=== PATIENT | female | born 1955 | race African-American/Black ===

== ENCOUNTER 2018-09-21 02:47 | Inpatient (IN) | payer MEDICARE, MEDICAID ==
[~2018-09-21] VITALS: Ht 165.1 cm; Wt 82.6 kg
[2018-09-21] MEDS ORDERED: ONDANSETRON HCL 4MG/2ML INJ IV STA (03:27)
[2018-09-21] MEDS ORDERED: SODIUM CHLORIDE 0.9% 1,000 ML IV ONE (03:27)
[2018-09-21 03:51] LABS: BG BASE EXCESS -2.5 mmol/L (-2.0-2.0); BG CARBOXYHEMOGLOBIN 0.5 % (0.5-1.5); BG DEOXYHEMOGLOBIN 5.5 % (0.0-5.0); BG FRACTION INSPIRED OXYGEN 21; BG HCO3 ACT 21.5 mmol/L (22.0-26.0); BG METHEMOGLOBIN 0.2 % (0.0-1.5); BG OXYGEN SATURATION 94.5 % (92.0-98.5); BG OXYHEMOGLOBIN 93.8 % (94.0-97.0); BG PCO2 34.7 mmHg (35.0-45.0); BG PH 7.409 (7.350-7.450); BG SAMPLE SITE RIGHT RADIAL; BG TOTAL HEMOGLOBIN 14.2 g/dL (12.0-18.0); BG VENT MODE ROOM AIR
[2018-09-21 04:05] LABS: CHLORIDE 95 mEq/L (98-107)
[2018-09-21 04:08] LABS: BASOPHILS % 0.4 % (0.0-2.0); EOSINOPHILS % 0.6 % (0.0-5.0); HEMATOCRIT. 41.8 % (36.0-48.0); HEMOGLOBIN. 14.4 g/dL (12.0-16.0); LYMPHOCYTES % 11.1 % (20.0-50.0); MEAN CORPUSCULAR HEMOGLOBIN 27.9 pg (28.0-32.0); MEAN CORPUSCULAR VOLUME 80.7 fL (81.0-99.0); MEAN PLATELET VOLUME 8.5 fl (7.4-10.4); MONOCYTES % 10.2 % (2.0-8.0); NEUTROPHILS % 77.7 % (40.0-76.0); PLATELET 255 x1000/uL (130-400); RED BLOOD CELL COUNT 5.18 mill/uL (4.2-5.4); RED CELL DISTRIBUTION WIDTH 13.7 % (11.6-14.6)
[2018-09-21 04:12] LABS: BETA HYDROXYBUTYRATE 0.8 mMol/L (0.0-0.3)
[2018-09-21] MEDS ORDERED: TRAMADOL 50MG TABLET PO PRN (07:30)
[2018-09-21] MEDS ORDERED: GUAIFENESIN 200MG/10ML SUGAR FREE UDC PO PRN (07:30)
[2018-09-21] MEDS ORDERED: DEXTROSE 50% WATER 50ML SYRINGE IV PRN (07:30)
[2018-09-21] MEDS ORDERED: DOCUSATE SODIUM 100MG CAPSULE PO PRN (07:30)
[2018-09-21] MEDS ORDERED: NITROGLYCERIN 0.4MG TABLET SL SL PRN (07:30)
[2018-09-21] MEDS ORDERED: ONDANSETRON HCL 4MG/2ML INJ IV PRN (07:30)
[2018-09-21] MEDS ORDERED: IPRATROPIUM/ALBUTEROL 0.5-3(2.5)MG/3ML NEB INH PRN (07:30)
[2018-09-21] MEDS ORDERED: MAGNESIUM/ALUMINUM HYDROXIDE/SIMETHICONE 30ML UDC PO PRN (07:30)
[2018-09-21 08:22] LABS: VITAMIN B12 SERUM 178 pg/mL (211-911)
[2018-09-21 08:35] LABS: FOLIC ACID (FOLATE) SERUM > 20.00 ng/mL (>5.38)
[2018-09-21] MEDS: SODIUM CHLORIDE 0.9% 1,000 ML IV SCH ×2 (08:40→12:47)
[2018-09-21] MEDS: INSULIN LISPRO 100 UNITS/ML SUBCUT SCH ×3 (08:50→18:15)
[2018-09-21] MEDS: BLOOD SUGAR DIAGNOSTIC STRIP TEST SCH ×4 (09:00→20:20)
[2018-09-21] MEDS: FAMOTIDINE 20MG TABLET PO SCH ×2 (10:29→20:20)
[2018-09-21] MEDS: ENOXAPARIN 40MG/0.4ML SYR SUBCUT SCH (10:29)
[2018-09-21 10:30] VITALS: BP 140/78
[2018-09-21] MEDS: METOCLOPRAMIDE 10MG/10 ML UDC PO SCH ×3 (10:36→17:30)
[2018-09-21] MEDS: SUCRALFATE 1 G/10 ML UDC PO SCH ×4 (10:36→20:20)
[2018-09-21] MEDS: ACETAMINOPHEN 325MG TABLET PO PRN ×2 (10:41→20:43)
[2018-09-21 10:59] VITALS: BP 140/78
[2018-09-21 12:00] VITALS: BP 139/75
[2018-09-21] MEDS: CLOPIDOGREL 75MG TABLET PO SCH (12:47)
[2018-09-21] MEDS: INSULIN GLARGINE UD 100 UNITS/ML SYR SUBCUT SCH (15:38)
[2018-09-21 16:00] VITALS: BP 142/88
[2018-09-21] MEDS: CYANOCOBALAMIN 1000MCG/ML VIAL IM SCH (17:30)
[2018-09-21 17:44] LABS: CREATINE KINASE 275 IU/L (26-192)
[2018-09-21 17:45] LABS: CREATINE KINASE MB FRACTION 1.2 ng/mL (0.5-3.6)
[2018-09-21 19:53] VITALS: BP 142/74
[2018-09-21] MEDS: ATORVASTATIN CALCIUM 20MG TABLET PO SCH (20:20)
[2018-09-21] MEDS ORDERED: ZOLPIDEM TARTRATE 5MG TABLET PO PRN (21:00)
[2018-09-21 23:53] LABS: CREATINE KINASE 250 IU/L (26-192)
[2018-09-21 23:54] LABS: CREATINE KINASE MB FRACTION < 1.0 ng/mL (0.5-3.6)
[2018-09-22] VITALS (7 sets, daily range): BP systolic 123–180; BP diastolic 66–89
[2018-09-22] MEDS: INSULIN LISPRO 100 UNITS/ML SUBCUT SCH ×5 (02:17→21:13)
[2018-09-22] MEDS: METOCLOPRAMIDE 10MG/10 ML UDC PO SCH ×3 (06:07→16:56)
[2018-09-22] MEDS: SUCRALFATE 1 G/10 ML UDC PO SCH ×4 (06:07→20:51)
[2018-09-22] MEDS: BLOOD SUGAR DIAGNOSTIC STRIP TEST SCH ×4 (06:09→20:51)
[2018-09-22] MEDS ORDERED: CHOL20004 MT (09:20)
[2018-09-22] MEDS ORDERED: ASPI-986 MT (09:20)
[2018-09-22] MEDS ORDERED: ATOR-2 MT (09:20)
[2018-09-22] MEDS ORDERED: METF-815 MT (09:20)
[2018-09-22] MEDS ORDERED: CLOP75TA4 MT (09:20)
[2018-09-22] MEDS: CYANOCOBALAMIN 1000MCG/ML VIAL IM SCH (09:27)
[2018-09-22] MEDS: ENOXAPARIN 40MG/0.4ML SYR SUBCUT SCH (09:27)
[2018-09-22] MEDS: CLOPIDOGREL 75MG TABLET PO SCH (09:27)
[2018-09-22] MEDS: FAMOTIDINE 20MG TABLET PO SCH ×2 (09:27→20:51)
[2018-09-22] MEDS: SODIUM CHLORIDE 0.9% 1,000 ML IV SCH ×2 (10:02→15:28)
[2018-09-22] MEDS: INSULIN GLARGINE UD 100 UNITS/ML SYR SUBCUT SCH (11:33)
[2018-09-22] MEDS: CLONIDINE 0.1MG TABLET PO PRN (15:52)
[2018-09-22] MEDS: ATORVASTATIN CALCIUM 20MG TABLET PO SCH (20:51)
[2018-09-23] VITALS: BP 155/80
[2018-09-23 04:00] VITALS: BP 148/81
[2018-09-23] MEDS: ACETAMINOPHEN 325MG TABLET PO PRN (05:42)
[2018-09-23] MEDS: SUCRALFATE 1 G/10 ML UDC PO SCH ×4 (05:43→20:44)
[2018-09-23] MEDS: BLOOD SUGAR DIAGNOSTIC STRIP TEST SCH ×4 (05:44→21:00)
[2018-09-23] MEDS: METOCLOPRAMIDE 10MG/10 ML UDC PO SCH ×3 (05:44→17:03)
[2018-09-23] MEDS: INSULIN LISPRO 100 UNITS/ML SUBCUT SCH ×4 (06:24→21:22)
[2018-09-23 08:00] VITALS: BP 175/86
[2018-09-23] MEDS: CLOPIDOGREL 75MG TABLET PO SCH (08:56)
[2018-09-23] MEDS: CLONIDINE 0.1MG TABLET PO PRN (08:56)
[2018-09-23] MEDS: CYANOCOBALAMIN 1000MCG/ML VIAL IM SCH (08:57)
[2018-09-23] MEDS: ENOXAPARIN 40MG/0.4ML SYR SUBCUT SCH (08:57)
[2018-09-23] MEDS: FAMOTIDINE 20MG TABLET PO SCH ×2 (08:57→20:45)
[2018-09-23] MEDS: INSULIN GLARGINE UD 100 UNITS/ML SYR SUBCUT SCH (10:56)
[2018-09-23] MEDS: AMLODIPINE 10MG TABLET PO SCH (10:59)
[2018-09-23] MEDS: SODIUM CHLORIDE 0.9% 1,000 ML IV SCH (12:42)
[2018-09-23] MEDS ORDERED: IOHEXOL-350 100 ML BOTTLE ONE (14:02)
[2018-09-23 16:00] VITALS: BP 124/76
[2018-09-23 20:00] VITALS: BP 120/72
[2018-09-23] MEDS: ATORVASTATIN CALCIUM 20MG TABLET PO SCH (20:45)
[2018-09-24] VITALS: BP 118/70
[2018-09-24] MEDS: SODIUM CHLORIDE 0.9% 1,000 ML IV SCH ×3 (02:02→14:27)
[2018-09-24 04:00] VITALS: BP 109/73
[2018-09-24] MEDS: BLOOD SUGAR DIAGNOSTIC STRIP TEST SCH ×4 (06:00→20:46)
[2018-09-24] MEDS: METOCLOPRAMIDE 10MG/10 ML UDC PO SCH ×3 (06:12→17:59)
[2018-09-24] MEDS: SUCRALFATE 1 G/10 ML UDC PO SCH ×4 (06:12→21:00)
[2018-09-24] MEDS: INSULIN LISPRO 100 UNITS/ML SUBCUT SCH ×4 (06:13→21:03)
[2018-09-24 08:00] VITALS: BP 120/78
[2018-09-24] MEDS: CLOPIDOGREL 75MG TABLET PO SCH (08:58)
[2018-09-24] MEDS: CYANOCOBALAMIN 1000MCG/ML VIAL IM SCH (08:58)
[2018-09-24] MEDS: ENOXAPARIN 40MG/0.4ML SYR SUBCUT SCH (08:58)
[2018-09-24] MEDS: AMLODIPINE 10MG TABLET PO SCH (08:59)
[2018-09-24] MEDS: FAMOTIDINE 20MG TABLET PO SCH ×2 (09:00→21:01)
[2018-09-24] MEDS: INSULIN GLARGINE UD 100 UNITS/ML SYR SUBCUT SCH (09:59)
[2018-09-24] MEDS: ACETAMINOPHEN 325MG TABLET PO PRN (11:38)
[2018-09-24 16:00] VITALS: BP 107/63
[2018-09-24 20:00] VITALS: BP 138/74
[2018-09-24] MEDS: ATORVASTATIN CALCIUM 20MG TABLET PO SCH (21:01)
[2018-09-25] VITALS (7 sets, daily range): BP systolic 126–143; BP diastolic 62–77
[2018-09-25] MEDS: BLOOD SUGAR DIAGNOSTIC STRIP TEST SCH ×3 (06:10→17:49)
[2018-09-25] MEDS: SUCRALFATE 1 G/10 ML UDC PO SCH ×3 (06:17→17:56)
[2018-09-25] MEDS: METOCLOPRAMIDE 10MG/10 ML UDC PO SCH ×3 (06:17→17:51)
[2018-09-25] MEDS: INSULIN LISPRO 100 UNITS/ML SUBCUT SCH ×4 (06:19→18:00)
[2018-09-25] MEDS: CLOPIDOGREL 75MG TABLET PO SCH (10:32)
[2018-09-25] MEDS: FAMOTIDINE 20MG TABLET PO SCH (10:32)
[2018-09-25] MEDS: ENOXAPARIN 40MG/0.4ML SYR SUBCUT SCH (10:35)
[2018-09-25] MEDS: AMLODIPINE 10MG TABLET PO SCH (10:35)
[2018-09-25] MEDS: CYANOCOBALAMIN 1000MCG/ML VIAL IM SCH (10:36)
[2018-09-25] MEDS: SODIUM CHLORIDE 0.9% 1,000 ML IV SCH (10:38)
[2018-09-25] MEDS: INSULIN GLARGINE UD 100 UNITS/ML SYR SUBCUT SCH (11:11)
== END 2018-09-25 21:40 | DRG 64 ==
LOC: ER 02:47 → 8WST 05:10 → EDBEDREQTM 05:13 → EDBEDREQ 05:13 → ENRESERV 07:03 → SUPCPDRO 07:06
PROVIDERS: ADMIT Internal Medicine; ATTEND Internal Medicine
DX: I63.9 Cerebral infarction, unspecified (principal); G92 Toxic encephalopathy; E87.1 Hypo-osmolality and hyponatremia; G81.94 Hemiplegia, unspecified affecting left nondominant side; E53.8 Deficiency of other specified B group vitamins; E11.65 Type 2 diabetes mellitus with hyperglycemia; I10 Essential (primary) hypertension; I65.22 Occlusion and stenosis of left carotid artery; Z88.8 Allergy status to other drugs, medicaments and biological substances
CPT/HCPCS: 36415; 36600; 70498; 70544; 70551; 71045; 74176; 80061; 82010; 82375; 82550; 82553; 82607; 82746; 82805; 82962; 83036; 83605; 84145; 84443; 84484; 93005; 93306; 93880; 93970; 96374; 99285; J1650; J1815; J2405; J3420; J7030; J8597; Q9967

== ENCOUNTER 2022-10-30 14:39 | Emergency (ER) | payer MEDICARE, MEDICAID ==
[~2022-10-30] VITALS: Ht 167.6 cm; Wt 55.0 kg
[2022-10-30 14:52] VITALS: O2SAT 97
[2022-10-30 17:34] LABS: BASOPHILS % 0.5 % (0.0-2.0); CHLORIDE 101 mEq/L (98-107); EOSINOPHILS % 1.4 % (0.0-5.0); HEMATOCRIT. 42.3 % (36.0-48.0); INDEX HEMOLYSI 1 (1-3); INDEX ICTERIC 1 (1-4); INDEX LIPEMIC 1 (1-3); LYMPHOCYTES % 20.9 % (20.0-50.0); MEAN CORPUSCULAR HEMOGLOBIN 27.5 pg (28.0-32.0); MEAN CORPUSCULAR HGB CONC 33.2 g/dL (31.0-37.0); MEAN CORPUSCULAR VOLUME 82.9 fL (81.0-99.0); MEAN PLATELET VOLUME 8.2 fl (7.4-10.4); MONOCYTES % 6.7 % (2.0-8.0); NEUTROPHILS % 70.5 % (40.0-76.0); PLATELET 364 x1000/uL (130-400); SODIUM 135 mEq/L (136-145); WHITE BLOOD COUNT 12.2 x1000/uL (4.5-11.0)
[2022-10-30 17:38] LABS: AMMONIA < 10 uMol/L (<32)
[2022-10-30 17:40] LABS: PROTHROMBIN TIME 10.9 sec (9.6-11.0)
[2022-10-30 17:44] LABS: ALANINE AMINOTRANSFERASE 32 IU/L (13-61); ASPARTATE AMINOTRANSFERASE 23 IU/L (15-37); BILIRUBIN TOTAL 0.8 mg/dL (0.1-1.0); CALCIUM 9.8 mg/dL (8.5-10.1); CARBON DIOXIDE 27 mEq/L (21-32); CREATININE 0.7 mg/dL (0.6-1.3); ETHANOL BLOOD < 10 mg/dL (-10); GLUCOSE 88 mg/dL (70-105); NT PRO B-TYPE NATRIURETIC PEP 126 pg/mL (5-125); PROTEIN TOTAL 8.5 g/dL (6.0-8.3); TROPONIN I HIGH SENSITIVITY 42 ng/L (<54); UREA NITROGEN BLOOD 22 mg/dL (7-21)
[2022-10-30 19:39] LABS: CLARITY URINE CLEAR (CLEAR); COLOR URINE YELLOW (YELLOW); GLUCOSE URINE NEGATIVE (NEGATIVE); KETONES URINE 2+ (NEGATIVE); LEUKOCYTE ESTERASE URINE NEGATIVE (NEGATIVE); NITRITE URINE NEGATIVE (NEGATIVE); OCCULT BLOOD URINE NEGATIVE (NEGATIVE); PH URINE 5.5 (4.5-8.0); PROTEIN URINE NEGATIVE (NEGATIVE); SPECIFIC GRAVITY URINE 1.025 (1.005-1.030); UROBILINOGEN URINE 0.2 E.U./dL (0.2-1.0)
[2022-10-31 08:37] VITALS: BP 107/65; PULSE 100; RESP 14; TEMP 98.8
== END 2022-10-31 08:58 | disposition home or self-care (01) ==
LOC: ER 14:49
DX: R53.1 Weakness (principal); E11.9 Type 2 diabetes mellitus without complications; I95.9 Hypotension, unspecified; Z86.73 Personal history of transient ischemic attack (TIA), and cerebral infarction without residual deficits
CPT/HCPCS: 36415; 71045; 80053; 80320; 81003; 82140; 83605; 83880; 84484; 85025; 86850; 86900; 93005; 99285; G0480

== ENCOUNTER 2022-11-14 17:27 | Inpatient (IN) | payer MEDICARE, MEDICAID ==
[~2022-11-14] VITALS: Ht 157.5 cm; Wt 54.9 kg
[2022-11-14] MEDS ORDERED: SODIUM CHLORIDE 0.9% 1,000 ML IV ONE (17:45)
[2022-11-14 18:29] LABS: BASOPHILS % 0.3 % (0.0-2.0); EOSINOPHILS % 1.4 % (0.0-5.0); HEMATOCRIT. 42.3 % (36.0-48.0); HEMOGLOBIN. 13.7 g/dL (12.0-16.0); LYMPHOCYTES % 17.9 % (20.0-50.0); MEAN CORPUSCULAR HEMOGLOBIN 27.1 pg (28.0-32.0); MEAN CORPUSCULAR HGB CONC 32.4 g/dL (31.0-37.0); MEAN CORPUSCULAR VOLUME 83.6 fL (81.0-99.0); MEAN PLATELET VOLUME 7.9 fl (7.4-10.4); MONOCYTES % 7.5 % (2.0-8.0); NEUTROPHILS % 72.9 % (40.0-76.0); PLATELET 382 x1000/uL (130-400); RED BLOOD CELL COUNT 5.06 mill/uL (4.2-5.4); WHITE BLOOD COUNT 16.1 x1000/uL (4.5-11.0)
[2022-11-14 18:39] LABS: CHLORIDE 101 mEq/L (98-107); INDEX HEMOLYSI 1 (1-3); INDEX ICTERIC 1 (1-4); INDEX LIPEMIC 1 (1-3); POTASSIUM 4.7 mEq/L (3.5-5.1); SODIUM 132 mEq/L (136-145)
[2022-11-14 18:45] LABS: ALANINE AMINOTRANSFERASE 32 IU/L (13-61); ASPARTATE AMINOTRANSFERASE 28 IU/L (15-37); BILIRUBIN TOTAL 0.6 mg/dL (0.1-1.0); CALCIUM 9.5 mg/dL (8.5-10.1); CARBON DIOXIDE 26 mEq/L (21-32); CREATININE 1.6 mg/dL (0.6-1.3); GLUCOSE 89 mg/dL (70-105); PROTEIN TOTAL 8.5 g/dL (6.0-8.3); UREA NITROGEN BLOOD 53 mg/dL (7-21)
[2022-11-14 19:00] LABS: LACTIC ACID 2.6 mmol/L (0.4-2.0)
[2022-11-14] MEDS ORDERED: ACETAMINOPHEN 325MG TABLET PO PRN (21:45)
[2022-11-14] MEDS ORDERED: CLONIDINE 0.1MG TABLET PO PRN (21:45)
[2022-11-14] MEDS ORDERED: GUAIFENESIN 200MG/10ML SUGAR FREE UDC PO PRN (21:45)
[2022-11-14] MEDS ORDERED: MAGNESIUM/ALUMINUM HYDROXIDE/SIMETHICONE 30ML UDC PO PRN (21:45)
[2022-11-14] MEDS ORDERED: DEXTROSE 50% WATER 50ML SYRINGE IV PRN (21:45)
[2022-11-14] MEDS ORDERED: NITROGLYCERIN 0.4MG TABLET SL SL PRN (21:45)
[2022-11-14] MEDS ORDERED: ONDANSETRON HCL 4MG/2ML INJ IV PRN (21:45)
[2022-11-14] MEDS ORDERED: DOCUSATE SODIUM 100MG CAPSULE PO PRN (21:45)
[2022-11-14] MEDS ORDERED: IPRATROPIUM/ALBUTEROL 0.5-3(2.5)MG/3ML NEB HHN PRN (21:45)
[2022-11-14] MEDS ORDERED: PIPERACILLIN/TAZ 3.375G PREMIX 50 ML IV NR (22:45)
[2022-11-14 22:56] LABS: CLARITY URINE CLEAR (CLEAR); COLOR URINE YELLOW (YELLOW); GLUCOSE URINE NEGATIVE (NEGATIVE); KETONES URINE NEGATIVE (NEGATIVE); LEUKOCYTE ESTERASE URINE TRACE (NEGATIVE); NITRITE URINE NEGATIVE (NEGATIVE); OCCULT BLOOD URINE NEGATIVE (NEGATIVE); PROTEIN URINE NEGATIVE (NEGATIVE); UROBILINOGEN URINE 0.2 E.U./dL (0.2-1.0)
[2022-11-14 22:59] LABS: SQUAMOUS EPITHELIAL CELL URINE 1+ /lpf (RARE/1+)
[2022-11-14 23:15] LABS: BACTERIA URINE 1+; RBC URINE 0-2 /hpf (0-2); YEAST URINE 1+
[2022-11-14] MEDS ORDERED: VANCOMYCIN 1G PREMIX 200 ML IV NR (23:30)
[2022-11-14] MEDS: SODIUM CHLORIDE 0.9% 1,000 ML IV SCH (23:46)
[2022-11-15 02:37] VITALS: BP 130/77; PULSE 108; RESP 20; TEMP 97.9
[2022-11-15 04:42] VITALS: BP 130/77; PULSE 108; RESP 20; TEMP 97.9
[2022-11-15] MEDS ORDERED: PIPERACILLIN/TAZOBACTAM 3.375 G in DEXTROSE 5% WATER 50 ML IV SCH (06:00)
[2022-11-15] MEDS: INSULIN LISPRO 100 UNITS/ML SUBCUT SCH ×4 (07:28→21:00)
[2022-11-15] MEDS: BLOOD SUGAR DIAGNOSTIC STRIP TEST SCH ×4 (07:28→21:00)
[2022-11-15] MEDS: PANTOPRAZOLE 40MG DR TABLET PO SCH (07:29)
[2022-11-15 08:00] VITALS: BP 133/79; PULSE 98; RESP 18; TEMP 95.7
[2022-11-15 08:12] LABS: BASOPHILS % 0.5 % (0.0-2.0); EOSINOPHILS % 1.1 % (0.0-5.0); HEMOGLOBIN. 12.7 g/dL (12.0-16.0); LYMPHOCYTES % 14.5 % (20.0-50.0); MEAN CORPUSCULAR HEMOGLOBIN 27.6 pg (28.0-32.0); MEAN CORPUSCULAR HGB CONC 33.5 g/dL (31.0-37.0); MEAN CORPUSCULAR VOLUME 82.3 fL (81.0-99.0); MEAN PLATELET VOLUME 8.5 fl (7.4-10.4); MONOCYTES % 6.6 % (2.0-8.0); NEUTROPHILS % 77.3 % (40.0-76.0); PLATELET 349 x1000/uL (130-400); RED BLOOD CELL COUNT 4.62 mill/uL (4.2-5.4); RED CELL DISTRIBUTION WIDTH 13.8 % (11.6-14.6); WHITE BLOOD COUNT 16.1 x1000/uL (4.5-11.0)
[2022-11-15 08:35] LABS: CHLORIDE 105 mEq/L (98-107); INDEX HEMOLYSI 1 (1-3); INDEX ICTERIC 1 (1-4); INDEX LIPEMIC 1 (1-3); POTASSIUM 4.8 mEq/L (3.5-5.1); SODIUM 137 mEq/L (136-145)
[2022-11-15 08:57] LABS: ALANINE AMINOTRANSFERASE 26 IU/L (13-61); ALBUMIN 3.6 g/dL (3.4-5.0); ASPARTATE AMINOTRANSFERASE 28 IU/L (15-37); BILIRUBIN TOTAL 0.8 mg/dL (0.1-1.0); CALCIUM 9.3 mg/dL (8.5-10.1); CARBON DIOXIDE 25 mEq/L (21-32); CREATININE 1.2 mg/dL (0.6-1.3); GLUCOSE 86 mg/dL (70-105); PROTEIN TOTAL 7.5 g/dL (6.0-8.3); T4 FREE 1.51 ng/dL (0.76-1.46); THYROID STIMULATING HORMONE 0.98 uIU/mL (0.36-3.74); UREA NITROGEN BLOOD 43 mg/dL (7-21)
[2022-11-15] MEDS: BENAZEPRIL 10MG TABLET PO SCH (11:25)
[2022-11-15] MEDS: ASPIRIN 81MG EC TABLET PO SCH (11:25)
[2022-11-15] MEDS: CLOPIDOGREL 75MG TABLET PO SCH (11:26)
[2022-11-15] MEDS: AMLODIPINE 10MG TABLET PO SCH (11:28)
[2022-11-15] MEDS: ENOXAPARIN 30MG/0.3ML SYR SUBCUT SCH (11:30)
[2022-11-15 12:00] VITALS: BP 132/77; PULSE 84; RESP 18; TEMP 97.7
[2022-11-15] MEDS: PIPERACILLIN/TAZOBACTAM 3.375 G in DEXTROSE 5% WATER 50 ML IV SCH ×2 (15:00→15:52)
[2022-11-15 16:00] VITALS: BP 122/70; PULSE 72; RESP 18; TEMP 96.6
[2022-11-15 18:18] LABS: AMMONIA 23 uMol/L (<32)
[2022-11-15 18:44] LABS: VITAMIN B12 SERUM 798 pg/mL (211-911)
[2022-11-15 18:53] LABS: LACTIC ACID 2.4 mmol/L (0.4-2.0)
[2022-11-15 20:00] VITALS: BP 107/63; PULSE 84; RESP 23; TEMP 97.9
[2022-11-15] MEDS ORDERED: VANCOMYCIN 750MG PREMIX 150 ML IV SCH (23:30)
[2022-11-16] VITALS: BP 106/81; PULSE 112; RESP 17; TEMP 97.9
[2022-11-16] MEDS: ATORVASTATIN CALCIUM 40MG TABLET PO SCH ×2 (00:45→21:53)
[2022-11-16] MEDS: SODIUM CHLORIDE 0.9% 1,000 ML IV SCH ×2 (02:20→21:55)
[2022-11-16 04:00] VITALS: BP 128/61; PULSE 113; RESP 18; TEMP 97.9
[2022-11-16 07:11] LABS: BASOPHILS % 0.3 % (0.0-2.0); EOSINOPHILS % 1.2 % (0.0-5.0); HEMATOCRIT. 38.7 % (36.0-48.0); HEMOGLOBIN. 12.9 g/dL (12.0-16.0); LYMPHOCYTES % 17.7 % (20.0-50.0); MEAN CORPUSCULAR HEMOGLOBIN 27.2 pg (28.0-32.0); MEAN CORPUSCULAR HGB CONC 33.4 g/dL (31.0-37.0); MEAN CORPUSCULAR VOLUME 81.4 fL (81.0-99.0); MEAN PLATELET VOLUME 8.4 fl (7.4-10.4); MONOCYTES % 7.7 % (2.0-8.0); NEUTROPHILS % 73.1 % (40.0-76.0); PLATELET 348 x1000/uL (130-400); RED BLOOD CELL COUNT 4.75 mill/uL (4.2-5.4); RED CELL DISTRIBUTION WIDTH 13.8 % (11.6-14.6); WHITE BLOOD COUNT 13.6 x1000/uL (4.5-11.0)
[2022-11-16] MEDS: INSULIN LISPRO 100 UNITS/ML SUBCUT SCH ×3 (07:31→21:00)
[2022-11-16] MEDS: BLOOD SUGAR DIAGNOSTIC STRIP TEST SCH ×3 (07:31→21:53)
[2022-11-16] MEDS: PIPERACILLIN/TAZOBACTAM 3.375 G in DEXTROSE 5% WATER 50 ML IV SCH ×2 (07:31→22:17)
[2022-11-16] MEDS: PANTOPRAZOLE 40MG DR TABLET PO SCH (07:31)
[2022-11-16 08:00] VITALS: BP 106/63; PULSE 117; RESP 20; TEMP 97.4
[2022-11-16 08:05] LABS: CHLORIDE 104 mEq/L (98-107); INDEX HEMOLYSI 1 (1-3); INDEX ICTERIC 1 (1-4); INDEX LIPEMIC 1 (1-3); POTASSIUM 4.2 mEq/L (3.5-5.1); SODIUM 137 mEq/L (136-145)
[2022-11-16 08:11] LABS: CALCIUM 9.4 mg/dL (8.5-10.1); CARBON DIOXIDE 24 mEq/L (21-32); GLUCOSE 90 mg/dL (70-105); PHOSPHORUS 2.4 mg/dL (2.5-4.9); UREA NITROGEN BLOOD 25 mg/dL (7-21)
[2022-11-16] MEDS ORDERED: MAGNESIUM 2 G PREMIX 50 ML IV SCH (10:00)
[2022-11-16 12:00] VITALS: BP 115/81; PULSE 120; RESP 21; TEMP 97.9
[2022-11-16] MEDS: CLOPIDOGREL 75MG TABLET PO SCH (12:24)
[2022-11-16] MEDS: BENAZEPRIL 10MG TABLET PO SCH (12:24)
[2022-11-16] MEDS: ASPIRIN 81MG EC TABLET PO SCH (12:24)
[2022-11-16] MEDS: AMLODIPINE 10MG TABLET PO SCH (12:25)
[2022-11-16] MEDS: ENOXAPARIN 30MG/0.3ML SYR SUBCUT SCH (12:31)
[2022-11-16 16:00] VITALS: BP 94/66; PULSE 126; RESP 20; TEMP 98.4
[2022-11-16] MEDS: POTASSIUM-SODIUM PHOSPHATE POWDER PACKET PO SCH (16:06)
[2022-11-16 20:00] VITALS: BP 119/71; PULSE 116; RESP 20; TEMP 96.8
[2022-11-17] VITALS: BP 110/65; PULSE 111; RESP 20; TEMP 97.5
[2022-11-17] MEDS: SODIUM CHLORIDE 0.9% 1,000 ML IV SCH (03:41)
[2022-11-17 04:00] VITALS: BP 90/55; PULSE 70; RESP 20; TEMP 97.8
[2022-11-17] MEDS: PIPERACILLIN/TAZOBACTAM 3.375 G in DEXTROSE 5% WATER 50 ML IV SCH ×3 (05:07→14:21)
[2022-11-17] MEDS: BLOOD SUGAR DIAGNOSTIC STRIP TEST SCH ×3 (06:49→16:38)
[2022-11-17 07:42] LABS: BASOPHILS % 0.5 % (0.0-2.0); EOSINOPHILS % 1.3 % (0.0-5.0); HEMATOCRIT. 34.8 % (36.0-48.0); HEMOGLOBIN. 11.9 g/dL (12.0-16.0); LYMPHOCYTES % 16.4 % (20.0-50.0); MEAN CORPUSCULAR HEMOGLOBIN 27.8 pg (28.0-32.0); MEAN CORPUSCULAR HGB CONC 34.2 g/dL (31.0-37.0); MEAN CORPUSCULAR VOLUME 81.4 fL (81.0-99.0); MEAN PLATELET VOLUME 8.2 fl (7.4-10.4); MONOCYTES % 7.5 % (2.0-8.0); NEUTROPHILS % 74.3 % (40.0-76.0); PLATELET 319 x1000/uL (130-400); RED BLOOD CELL COUNT 4.28 mill/uL (4.2-5.4); WHITE BLOOD COUNT 12.6 x1000/uL (4.5-11.0)
[2022-11-17] MEDS: INSULIN LISPRO 100 UNITS/ML SUBCUT SCH ×3 (07:50→16:38)
[2022-11-17 08:00] VITALS: BP 116/59; PULSE 85; RESP 18; TEMP 97
[2022-11-17] MEDS: POTASSIUM-SODIUM PHOSPHATE POWDER PACKET PO SCH ×2 (09:00→16:40)
[2022-11-17] MEDS ORDERED: FAMOTIDINE 20MG TABLET PO SCH (09:00)
[2022-11-17] MEDS: ASPIRIN 81MG EC TABLET PO SCH (09:30)
[2022-11-17] MEDS: CLOPIDOGREL 75MG TABLET PO SCH (09:30)
[2022-11-17] MEDS: ENOXAPARIN 30MG/0.3ML SYR SUBCUT SCH (09:30)
[2022-11-17] MEDS: BENAZEPRIL 10MG TABLET PO SCH (09:30)
[2022-11-17] MEDS: AMLODIPINE 10MG TABLET PO SCH ×2 (09:30→09:31)
[2022-11-17] MEDS ORDERED: LEVO750T68 MT ×2 (11:11→11:17)
[2022-11-17 11:41] VITALS: BP 116/59; PULSE 85; TEMP 97; O2SAT 99
[2022-11-17 12:00] VITALS: BP 95/62; PULSE 106; RESP 18; TEMP 98.1
[2022-11-17 12:17] LABS: CHLORIDE 105 mEq/L (98-107); INDEX HEMOLYSI 1 (1-3); INDEX ICTERIC 1 (1-4); INDEX LIPEMIC 1 (1-3); POTASSIUM 3.6 mEq/L (3.5-5.1); SODIUM 134 mEq/L (136-145)
[2022-11-17 12:29] LABS: ALANINE AMINOTRANSFERASE 27 IU/L (13-61); ALBUMIN 3.3 g/dL (3.4-5.0); ASPARTATE AMINOTRANSFERASE 27 IU/L (15-37); BILIRUBIN TOTAL 0.7 mg/dL (0.1-1.0); CALCIUM 8.4 mg/dL (8.5-10.1); CARBON DIOXIDE 26 mEq/L (21-32); CREATININE 1.1 mg/dL (0.6-1.3); GLUCOSE 146 mg/dL (70-105); PHOSPHORUS 2.3 mg/dL (2.5-4.9); PROTEIN TOTAL 6.8 g/dL (6.0-8.3); UREA NITROGEN BLOOD 21 mg/dL (7-21)
[2022-11-17 16:00] VITALS: BP 97/71; PULSE 89; RESP 18; TEMP 97.9
== END 2022-11-17 20:20 | DRG 871 ==
LOC: ER 17:27 → MICUSO 20:48 → 6EST 11-15 03:40
PROVIDERS: ADMIT Hospitalist; ATTEND Hospitalist
DX: A41.9 Sepsis, unspecified organism (principal); G92.8 Other toxic encephalopathy; N17.9 Acute kidney failure, unspecified; G82.20 Paraplegia, unspecified; N39.0 Urinary tract infection, site not specified; E11.9 Type 2 diabetes mellitus without complications; Z20.822 Contact with and (suspected) exposure to COVID-19; E86.0 Dehydration; E53.8 Deficiency of other specified B group vitamins; Z86.73 Personal history of transient ischemic attack (TIA), and cerebral infarction without residual deficits; Z87.440 Personal history of urinary (tract) infections; Z88.8 Allergy status to other drugs, medicaments and biological substances
CPT/HCPCS: 36415; 71045; 76770; 80048; 80053; 81003; 82140; 82553; 82570; 82607; 82962; 83036; 83605; 83735; 84100; 84145; 84300; 84439; 84443; 85025; 87077; 87186; 87426; 93005; 99285; C9803; J1650; J1815; J2543; J3370; J3475; J7030; J7060

== ENCOUNTER 2022-12-04 12:44 | Inpatient (IN) | payer MEDICARE, MEDICAID ==
[~2022-12-04] VITALS: Ht 152.4 cm; Wt 57.6 kg
[~2022-12-04 12:44] MED LIST: AMLO10TA80 PO; ATOR40TA70 PO; BENA10TA74 PO; CLOP75TA33 PO; LANC-502 SQ; METF-415 PO; PANT20TA17 PO; PHOS250T5 PO; [UNRECOGNIZED DRUG - CODE] SQ
[2022-12-04 14:41] LABS: BASOPHILS % 0.4 % (0.0-2.0); EOSINOPHILS % 1.8 % (0.0-5.0); HEMATOCRIT. 36.4 % (36.0-48.0); HEMOGLOBIN. 11.8 g/dL (12.0-16.0); LYMPHOCYTES % 21.6 % (20.0-50.0); MEAN CORPUSCULAR HEMOGLOBIN 27.5 pg (28.0-32.0); MEAN CORPUSCULAR HGB CONC 32.4 g/dL (31.0-37.0); MEAN CORPUSCULAR VOLUME 84.9 fL (81.0-99.0); MONOCYTES % 8.7 % (2.0-8.0); NEUTROPHILS % 67.5 % (40.0-76.0); PLATELET 342 x1000/uL (130-400); RED BLOOD CELL COUNT 4.28 mill/uL (4.2-5.4); RED CELL DISTRIBUTION WIDTH 14.6 % (11.6-14.6); WHITE BLOOD COUNT 12.7 x1000/uL (4.5-11.0)
[2022-12-04 14:52] LABS: CHLORIDE 104 mEq/L (98-107); INDEX HEMOLYSI 4 (1-3); INDEX ICTERIC 1 (1-4); INDEX LIPEMIC 1 (1-3); SODIUM 134 mEq/L (136-145)
[2022-12-04 15:02] LABS: ALANINE AMINOTRANSFERASE 26 IU/L (13-61); ALBUMIN 3.6 g/dL (3.4-5.0); ASPARTATE AMINOTRANSFERASE 25 IU/L (15-37); BILIRUBIN TOTAL 0.9 mg/dL (0.1-1.0); CALCIUM 9.9 mg/dL (8.5-10.1); CARBON DIOXIDE 21 mEq/L (21-32); CREATININE 0.6 mg/dL (0.6-1.3); GLUCOSE 96 mg/dL (70-105); PROTEIN TOTAL 7.9 g/dL (6.0-8.3); UREA NITROGEN BLOOD 15 mg/dL (7-21)
[2022-12-04 15:25] LABS: TROPONIN I HIGH SENSITIVITY 58 ng/L (<54)
[2022-12-04 15:26] LABS: POTASSIUM 4.9 mEq/L (3.5-5.1)
[2022-12-04 16:34] LABS: LACTIC ACID 2.6 mmol/L (0.4-2.0)
[2022-12-04] MEDS ORDERED: VANCOMYCIN 1G PREMIX 200 ML IV ONE (17:00)
[2022-12-04] MEDS ORDERED: PIPERACILLIN/TAZ 3.375G PREMIX 50 ML IV ONE (17:00)
[2022-12-04] MEDS ORDERED: SODIUM CHLORIDE 0.9% 1000ML BAG (SEPSIS BOLUS) IV ONE (17:00)
[2022-12-04] MEDS ORDERED: HALOPERIDOL LACTATE 5MG/ML VIAL IM ONE ×2 (18:45→19:15)
[2022-12-04 19:50] LABS: PROTHROMBIN TIME 10.9 sec (9.6-11.0)
[2022-12-04] MEDS ORDERED: LORAZEPAM 2MG/ML CPJ IV ONE (20:15)
[2022-12-04] MEDS ORDERED: ACETAMINOPHEN 325MG TABLET PO PRN ×2 (22:00)
[2022-12-04] MEDS ORDERED: ONDANSETRON HCL 4MG/2ML INJ IV PRN (22:00)
[2022-12-04] MEDS ORDERED: LORAZEPAM 0.5MG TABLET PO PRN (22:00)
[2022-12-04] MEDS ORDERED: CLONIDINE 0.1MG TABLET PO PRN (22:00)
[2022-12-04] MEDS ORDERED: GUAIFENESIN 200MG/10ML SUGAR FREE UDC PO PRN (22:00)
[2022-12-04] MEDS ORDERED: IPRATROPIUM/ALBUTEROL 0.5-3(2.5)MG/3ML NEB HHN PRN (22:00)
[2022-12-04] MEDS ORDERED: DOCUSATE SODIUM 100MG CAPSULE PO PRN (22:00)
[2022-12-05] MEDS ORDERED: DEXTROSE 50% WATER 50ML SYRINGE IV PRN
[2022-12-05 04:00] VITALS: BP 143/82; PULSE 98; RESP 18; TEMP 98.2
[2022-12-05 04:30] VITALS: BP 130/70; PULSE 119; RESP 18; TEMP 100.8
[2022-12-05] MEDS ORDERED: VANCOMYCIN 750MG PREMIX 150 ML IV SCH ×2 (06:00→20:00)
[2022-12-05 06:08] LABS: CHLORIDE 104 mEq/L (98-107); INDEX HEMOLYSI 1 (1-3); INDEX ICTERIC 1 (1-4); INDEX LIPEMIC 1 (1-3); SODIUM 136 mEq/L (136-145)
[2022-12-05 06:27] LABS: ALANINE AMINOTRANSFERASE 28 IU/L (13-61); ALBUMIN 3.3 g/dL (3.4-5.0); ASPARTATE AMINOTRANSFERASE 27 IU/L (15-37); BILIRUBIN TOTAL 0.8 mg/dL (0.1-1.0); CALCIUM 9.5 mg/dL (8.5-10.1); CARBON DIOXIDE 24 mEq/L (21-32); CREATINE KINASE 486 IU/L (26-192); CREATINE KINASE MB FRACTION 3.2 ng/mL (0.5-3.6); CREATININE 0.6 mg/dL (0.6-1.3); GLUCOSE 137 mg/dL (70-105); PHOSPHORUS 4.1 mg/dL (2.5-4.9); PROTEIN TOTAL 7.1 g/dL (6.0-8.3); UREA NITROGEN BLOOD 14 mg/dL (7-21)
[2022-12-05 06:36] LABS: HEMATOCRIT 33.5 % (36.0-48.0); HEMOGLOBIN 11.3 g/dL (12.0-16.0); MEAN CORPUSCULAR HEMOGLOBIN 27.8 pg (28.0-32.0); MEAN CORPUSCULAR HGB CONC 33.8 g/dL (31.0-37.0); MEAN CORPUSCULAR VOLUME 82.2 fL (81.0-99.0); PLATELET 351 x1000/uL (130-400); RED BLOOD CELL COUNT 4.08 mill/uL (4.2-5.4); RED CELL DISTRIBUTION WIDTH 14.7 % (11.6-14.6)
[2022-12-05] MEDS: PIPERACILLIN/TAZ 3.375G PREMIX 50 ML IV SCH ×2 (07:00→07:12)
[2022-12-05] MEDS: DEXT 5%/0.45% NACL 1000ML 1,000 ML IV SCH ×2 (07:12→20:22)
[2022-12-05] MEDS: INSULIN LISPRO 100 UNITS/ML SUBCUT SCH ×4 (07:12→21:15)
[2022-12-05] MEDS: BLOOD SUGAR DIAGNOSTIC STRIP TEST SCH ×4 (07:12→20:21)
[2022-12-05 08:00] VITALS: BP 102/56; PULSE 73; RESP 14; TEMP 96.9
[2022-12-05 08:50] LABS: TROPONIN I HIGH SENSITIVITY 57 ng/L (<54)
[2022-12-05] MEDS ORDERED: MAGNESIUM 1 G PREMIX 100 ML IV NR (09:00)
[2022-12-05] MEDS: AMLODIPINE 10MG TABLET PO SCH (09:00)
[2022-12-05 12:00] VITALS: BP 122/84; PULSE 117; RESP 14; TEMP 97.6
[2022-12-05 13:13] LABS: CLARITY URINE CLOUDY (CLEAR); COLOR URINE YELLOW (YELLOW); GLUCOSE URINE NEGATIVE (NEGATIVE); KETONES URINE NEGATIVE (NEGATIVE); LEUKOCYTE ESTERASE URINE TRACE (NEGATIVE); NITRITE URINE NEGATIVE (NEGATIVE); OCCULT BLOOD URINE NEGATIVE (NEGATIVE); PH URINE 5.5 (4.5-8.0); PROTEIN URINE NEGATIVE (NEGATIVE); SPECIFIC GRAVITY URINE 1.011 (1.005-1.030); UROBILINOGEN URINE 0.2 E.U./dL (0.2-1.0)
[2022-12-05 13:34] LABS: SQUAMOUS EPITHELIAL CELL URINE 1+ /lpf (RARE/1+); YEAST URINE 2+
[2022-12-05 13:37] LABS: BACTERIA URINE RARE; RBC URINE NONE SEEN /hpf (0-2)
[2022-12-05] MEDS: PIPERACILLIN/TAZOBACTAM 3.375G in DEXT 5% WATER 50ML IV SCH ×2 (14:05→21:42)
[2022-12-05 16:00] VITALS: BP 146/87; PULSE 129; RESP 16; TEMP 97.6
[2022-12-05 20:00] VITALS: BP 142/85; PULSE 133; RESP 18; TEMP 97.9
[2022-12-05] MEDS: FAMOTIDINE 20MG TABLET PO SCH (20:31)
[2022-12-05] MEDS: ATORVASTATIN CALCIUM 40MG TABLET PO SCH (20:31)
[2022-12-05] MEDS: LEVETIRACETAM 500MG TABLET PO SCH (20:31)
[2022-12-06] VITALS: BP 101/65; PULSE 105; RESP 18; TEMP 97.9
[2022-12-06 04:00] VITALS: BP 102/58; PULSE 119; RESP 21; TEMP 98.1
[2022-12-06] MEDS: PIPERACILLIN/TAZOBACTAM 3.375G in DEXT 5% WATER 50ML IV SCH (05:08)
[2022-12-06 07:00] LABS: HEMOGLOBIN 11.3 g/dL (12.0-16.0); MEAN CORPUSCULAR HEMOGLOBIN 28.4 pg (28.0-32.0); MEAN CORPUSCULAR HGB CONC 34.3 g/dL (31.0-37.0); MEAN CORPUSCULAR VOLUME 82.9 fL (81.0-99.0); PLATELET 359 x1000/uL (130-400); RED BLOOD CELL COUNT 3.99 mill/uL (4.2-5.4); RED CELL DISTRIBUTION WIDTH 14.5 % (11.6-14.6); WHITE BLOOD COUNT 9.4 x1000/uL (4.5-11.0)
[2022-12-06 07:38] LABS: SODIUM 135 mEq/L (136-145)
[2022-12-06 07:39] LABS: CHLORIDE 105 mEq/L (98-107); INDEX HEMOLYSI 1 (1-3); INDEX ICTERIC 1 (1-4); INDEX LIPEMIC 1 (1-3); POTASSIUM 3.5 mEq/L (3.5-5.1)
[2022-12-06 07:41] LABS: CALCIUM 9.4 mg/dL (8.5-10.1)
[2022-12-06 07:49] LABS: CARBON DIOXIDE 25 mEq/L (21-32); CREATINE KINASE 658 IU/L (26-192); CREATININE 0.6 mg/dL (0.6-1.3); PHOSPHORUS 3.7 mg/dL (2.5-4.9); UREA NITROGEN BLOOD 9 mg/dL (7-21)
[2022-12-06 08:00] VITALS: BP 105/71; PULSE 106; RESP 17; TEMP 98.1
[2022-12-06 08:04] LABS: TROPONIN I HIGH SENSITIVITY 70 ng/L (<54)
[2022-12-06] MEDS: INSULIN LISPRO 100 UNITS/ML SUBCUT SCH ×4 (08:10→21:00)
[2022-12-06] MEDS: BLOOD SUGAR DIAGNOSTIC STRIP TEST SCH ×4 (08:36→21:00)
[2022-12-06] MEDS: AMLODIPINE 10MG TABLET PO SCH (09:00)
[2022-12-06] MEDS: LEVETIRACETAM 500MG TABLET PO SCH ×2 (09:01→21:00)
[2022-12-06 09:13] LABS: GLUCOSE 111 mg/dL (70-105)
[2022-12-06] MEDS ORDERED: VANCOMYCIN 500MG PREMIX 100 ML IV SCH (11:00)
[2022-12-06 12:00] VITALS: BP 120/79; PULSE 97; RESP 17; TEMP 97.6
[2022-12-06] MEDS: ASPIRIN 81MG TABLET PO SCH (13:16)
[2022-12-06] MEDS: DEXT 5%/0.45% NACL 1000ML 1,000 ML IV SCH ×2 (13:17→22:45)
[2022-12-06 16:00] VITALS: BP 126/79; PULSE 109; RESP 17; TEMP 97.4
[2022-12-06 20:00] VITALS: BP 124/76; PULSE 102; RESP 20; TEMP 97.5
[2022-12-06] MEDS: ATORVASTATIN CALCIUM 40MG TABLET PO SCH (21:00)
[2022-12-06] MEDS: FAMOTIDINE 20MG TABLET PO SCH (21:00)
[2022-12-07] VITALS: BP 137/78; PULSE 116; RESP 20; TEMP 97.7
[2022-12-07 04:00] VITALS: BP 137/80; PULSE 105; RESP 20; TEMP 99.7
[2022-12-07] MEDS: BLOOD SUGAR DIAGNOSTIC STRIP TEST SCH ×4 (06:33→21:52)
[2022-12-07 08:00] VITALS: BP 143/82; PULSE 108; RESP 17; TEMP 96.8
[2022-12-07] MEDS: INSULIN LISPRO 100 UNITS/ML SUBCUT SCH ×4 (08:10→21:00)
[2022-12-07] MEDS: AMLODIPINE 10MG TABLET PO SCH (09:00)
[2022-12-07] MEDS: ASPIRIN 81MG TABLET PO SCH (09:00)
[2022-12-07] MEDS: LEVETIRACETAM 500MG TABLET PO SCH ×2 (09:00→21:00)
[2022-12-07] MEDS: CLOPIDOGREL 75MG TABLET PO SCH (09:00)
[2022-12-07 09:58] LABS: HEMATOCRIT 32.8 % (36.0-48.0); HEMOGLOBIN 11.3 g/dL (12.0-16.0); MEAN CORPUSCULAR HEMOGLOBIN 28.2 pg (28.0-32.0); MEAN CORPUSCULAR HGB CONC 34.4 g/dL (31.0-37.0); MEAN CORPUSCULAR VOLUME 82.1 fL (81.0-99.0); PLATELET 375 x1000/uL (130-400); RED CELL DISTRIBUTION WIDTH 14.6 % (11.6-14.6); WHITE BLOOD COUNT 7.9 x1000/uL (4.5-11.0)
[2022-12-07 10:03] LABS: CALCIUM 9.2 mg/dL (8.5-10.1); CHLORIDE 104 mEq/L (98-107); INDEX HEMOLYSI 1 (1-3); INDEX ICTERIC 1 (1-4); INDEX LIPEMIC 1 (1-3); POTASSIUM 3.1 mEq/L (3.5-5.1); SODIUM 137 mEq/L (136-145)
[2022-12-07 10:07] LABS: CARBON DIOXIDE 26 mEq/L (21-32); CREATININE 0.6 mg/dL (0.6-1.3); GLUCOSE 145 mg/dL (70-105); PHOSPHORUS 3.1 mg/dL (2.5-4.9); UREA NITROGEN BLOOD 6 mg/dL (7-21)
[2022-12-07 12:00] VITALS: BP 154/72; PULSE 98; RESP 17; TEMP 97.2
[2022-12-07] MEDS: ENOXAPARIN 40MG/0.4ML SYR SUBCUT SCH (12:31)
[2022-12-07 16:00] VITALS: BP 145/79; PULSE 95; RESP 17; TEMP 96.8
[2022-12-07 20:00] VITALS: BP 156/93; PULSE 122; RESP 20; TEMP 97.7
[2022-12-07] MEDS: ATORVASTATIN CALCIUM 40MG TABLET PO SCH (21:00)
[2022-12-07] MEDS: FAMOTIDINE 20MG TABLET PO SCH (21:00)
[2022-12-07] MEDS: DEXT 5%/0.45% NACL 1000ML 1,000 ML IV SCH (21:59)
[2022-12-08] VITALS (7 sets, daily range): BP systolic 130–166; BP diastolic 73–95; PULSE 73–116; RESP 18–20; TEMP 97.3–99
[2022-12-08] MEDS: BLOOD SUGAR DIAGNOSTIC STRIP TEST SCH ×4 (06:38→20:47)
[2022-12-08] MEDS: INSULIN LISPRO 100 UNITS/ML SUBCUT SCH ×4 (06:38→20:53)
[2022-12-08 08:24] LABS: HEMOGLOBIN 11.6 g/dL (12.0-16.0); MEAN CORPUSCULAR HEMOGLOBIN 28.1 pg (28.0-32.0); MEAN CORPUSCULAR HGB CONC 34.1 g/dL (31.0-37.0); MEAN CORPUSCULAR VOLUME 82.6 fL (81.0-99.0); PLATELET 377 x1000/uL (130-400); RED BLOOD CELL COUNT 4.11 mill/uL (4.2-5.4); RED CELL DISTRIBUTION WIDTH 14.3 % (11.6-14.6); WHITE BLOOD COUNT 9.4 x1000/uL (4.5-11.0)
[2022-12-08 08:47] LABS: CHLORIDE 106 mEq/L (98-107); INDEX HEMOLYSI 1 (1-3); INDEX ICTERIC 1 (1-4); INDEX LIPEMIC 1 (1-3); POTASSIUM 3.3 mEq/L (3.5-5.1); SODIUM 138 mEq/L (136-145)
[2022-12-08 08:59] LABS: CALCIUM 9.3 mg/dL (8.5-10.1); CARBON DIOXIDE 25 mEq/L (21-32); CHOLESTEROL 145 mg/dL (<200); CREATININE 0.5 mg/dL (0.6-1.3); GLUCOSE 115 mg/dL (70-105); HDL CHOLESTEROL 47 mg/dL (40-59); LDL CHOLESTEROL 85 mg/dL (5-100); TRIGLYCERIDE 105 mg/dL (0-150); UREA NITROGEN BLOOD 6 mg/dL (7-21)
[2022-12-08] MEDS: LEVETIRACETAM 500MG TABLET PO SCH ×2 (09:00→20:46)
[2022-12-08] MEDS: ASPIRIN 81MG TABLET PO SCH (09:00)
[2022-12-08] MEDS: AMLODIPINE 10MG TABLET PO SCH (09:00)
[2022-12-08] MEDS: CLOPIDOGREL 75MG TABLET PO SCH (09:00)
[2022-12-08] MEDS: ENOXAPARIN 40MG/0.4ML SYR SUBCUT SCH (09:09)
[2022-12-08] MEDS: BACLOFEN 10MG TABLET PO SCH ×2 (14:00→21:41)
[2022-12-08] MEDS: DEXT 5%/0.45% NACL 1000ML 1,000 ML IV SCH (15:02)
[2022-12-08] MEDS: FAMOTIDINE 20MG TABLET PO SCH (20:47)
[2022-12-08] MEDS: ATORVASTATIN CALCIUM 40MG TABLET PO SCH (20:47)
[2022-12-09] VITALS: BP 124/64; PULSE 99; RESP 18; TEMP 97.1
[2022-12-09 04:00] VITALS: BP 130/106; PULSE 97; RESP 18; TEMP 96.8
[2022-12-09] MEDS: BACLOFEN 10MG TABLET PO SCH ×3 (05:04→20:54)
[2022-12-09] MEDS: DEXT 5%/0.45% NACL 1000ML 1,000 ML IV SCH (06:38)
[2022-12-09] MEDS: BLOOD SUGAR DIAGNOSTIC STRIP TEST SCH ×4 (06:40→21:21)
[2022-12-09 08:00] VITALS: BP 138/70; PULSE 80; RESP 18; TEMP 97.4
[2022-12-09] MEDS: INSULIN LISPRO 100 UNITS/ML SUBCUT SCH ×4 (08:10→21:00)
[2022-12-09 08:36] LABS: BASOPHILS % 0.7 % (0.0-2.0); EOSINOPHILS % 1.5 % (0.0-5.0); HEMATOCRIT. 36.4 % (36.0-48.0); HEMOGLOBIN. 12.4 g/dL (12.0-16.0); LYMPHOCYTES % 19.1 % (20.0-50.0); MEAN CORPUSCULAR HEMOGLOBIN 28.3 pg (28.0-32.0); MEAN CORPUSCULAR VOLUME 83.3 fL (81.0-99.0); MEAN PLATELET VOLUME 9.6 fl (7.4-10.4); MONOCYTES % 7.7 % (2.0-8.0); PLATELET 199 x1000/uL (130-400); RED BLOOD CELL COUNT 4.36 mill/uL (4.2-5.4); RED CELL DISTRIBUTION WIDTH 14.3 % (11.6-14.6); WHITE BLOOD COUNT 9.5 x1000/uL (4.5-11.0)
[2022-12-09] MEDS: LEVETIRACETAM 500MG TABLET PO SCH ×2 (09:00→20:30)
[2022-12-09] MEDS: AMLODIPINE 10MG TABLET PO SCH (09:00)
[2022-12-09 09:43] LABS: CHLORIDE 105 mEq/L (98-107); INDEX HEMOLYSI 2 (1-3); INDEX ICTERIC 1 (1-4); INDEX LIPEMIC 1 (1-3); POTASSIUM 3.2 mEq/L (3.5-5.1); SODIUM 137 mEq/L (136-145)
[2022-12-09 09:49] LABS: CALCIUM 9.2 mg/dL (8.5-10.1); CARBON DIOXIDE 26 mEq/L (21-32); CREATININE 0.5 mg/dL (0.6-1.3); GLUCOSE 115 mg/dL (70-105); UREA NITROGEN BLOOD 5 mg/dL (7-21)
[2022-12-09] MEDS ORDERED: CEFAZOLIN 1000MG PREMIX 50 ML IV SCH (10:00)
[2022-12-09] MEDS ORDERED: POTASSIUM CHLORIDE INJ 40 MEQ in DEXT 5% WATER 250 ML IV ONE (11:15)
[2022-12-09 11:48] VITALS: BP 127/57; PULSE 94; RESP 20; TEMP 97.2
[2022-12-09] MEDS: KCL 20MEQ/100ML X 2 FOR TOTAL KCL 40MEQ/200ML IV SCH ×2 (12:29→17:45)
[2022-12-09] MEDS ORDERED: ONDANSETRON HCL 4MG/2ML INJ ONE (14:30)
[2022-12-09] MEDS ORDERED: PROPOFOL 200MG/20ML VIAL IV ONE (14:30)
[2022-12-09] MEDS ORDERED: DEXAMETHASONE 4MG/ML 1ML VIAL ONE (14:30)
[2022-12-09 18:00] VITALS: BP 148/84; PULSE 108; RESP 20; TEMP 97.1
[2022-12-09 20:00] VITALS: BP 150/76; PULSE 134; RESP 17; TEMP 97.1
[2022-12-09] MEDS: ATORVASTATIN CALCIUM 40MG TABLET PO SCH (20:30)
[2022-12-09] MEDS: FAMOTIDINE 20MG TABLET PO SCH (20:30)
[2022-12-09 22:06] LABS: HEMATOCRIT 36.3 % (36.0-48.0); HEMOGLOBIN 12.2 g/dL (12.0-16.0); MEAN CORPUSCULAR HEMOGLOBIN 27.8 pg (28.0-32.0); MEAN CORPUSCULAR HGB CONC 33.6 g/dL (31.0-37.0); MEAN CORPUSCULAR VOLUME 82.7 fL (81.0-99.0); PLATELET 426 x1000/uL (130-400); RED BLOOD CELL COUNT 4.39 mill/uL (4.2-5.4); RED CELL DISTRIBUTION WIDTH 14.8 % (11.6-14.6); WHITE BLOOD COUNT 14.9 x1000/uL (4.5-11.0)
[2022-12-09 22:15] LABS: CHLORIDE 104 mEq/L (98-107); INDEX HEMOLYSI 1 (1-3); INDEX ICTERIC 1 (1-4); INDEX LIPEMIC 1 (1-3); POTASSIUM 4.3 mEq/L (3.5-5.1); SODIUM 136 mEq/L (136-145)
[2022-12-09 22:21] LABS: CALCIUM 9.6 mg/dL (8.5-10.1); CARBON DIOXIDE 25 mEq/L (21-32); CREATININE 0.5 mg/dL (0.6-1.3); GLUCOSE 174 mg/dL (70-105); UREA NITROGEN BLOOD 7 mg/dL (7-21)
[2022-12-10] VITALS: BP 94/64; PULSE 77; RESP 16; TEMP 97.8
[2022-12-10] MEDS: DEXT 5%/0.45% NACL 1000ML 1,000 ML IV SCH (01:10)
[2022-12-10] MEDS: BACLOFEN 10MG TABLET PO SCH (03:56)
[2022-12-10 04:00] VITALS: BP 152/78; PULSE 99; RESP 18; TEMP 98
[2022-12-10] MEDS: BLOOD SUGAR DIAGNOSTIC STRIP TEST SCH (05:49)
[2022-12-10 08:00] VITALS: BP 123/73; PULSE 97; RESP 20; TEMP 97.2
[2022-12-10] MEDS: INSULIN LISPRO 100 UNITS/ML SUBCUT SCH (08:10)
[2022-12-10] MEDS: CLOPIDOGREL 75MG TABLET PO SCH (09:06)
[2022-12-10] MEDS: AMLODIPINE 10MG TABLET PO SCH (09:06)
[2022-12-10] MEDS: LEVETIRACETAM 500MG TABLET PO SCH (09:07)
[2022-12-10 11:19] VITALS: BP 123/73; PULSE 75; TEMP 97.2; O2SAT 97
[2022-12-10 11:29] LABS: HEMATOCRIT 33.4 % (36.0-48.0); HEMOGLOBIN 11.1 g/dL (12.0-16.0); MEAN CORPUSCULAR HEMOGLOBIN 27.4 pg (28.0-32.0); MEAN CORPUSCULAR HGB CONC 33.2 g/dL (31.0-37.0); MEAN CORPUSCULAR VOLUME 82.7 fL (81.0-99.0); PLATELET 350 x1000/uL (130-400); RED BLOOD CELL COUNT 4.04 mill/uL (4.2-5.4); RED CELL DISTRIBUTION WIDTH 14.5 % (11.6-14.6); WHITE BLOOD COUNT 12.9 x1000/uL (4.5-11.0)
[2022-12-10 11:36] LABS: CHLORIDE 107 mEq/L (98-107); INDEX HEMOLYSI 1 (1-3); INDEX ICTERIC 1 (1-4); INDEX LIPEMIC 1 (1-3); POTASSIUM 3.7 mEq/L (3.5-5.1); SODIUM 134 mEq/L (136-145)
[2022-12-10 11:42] LABS: CARBON DIOXIDE 25 mEq/L (21-32); CREATININE 0.5 mg/dL (0.6-1.3); GLUCOSE 106 mg/dL (70-105); PHOSPHORUS 2.9 mg/dL (2.5-4.9); UREA NITROGEN BLOOD 7 mg/dL (7-21)
== END 2022-12-10 15:24 | DRG 871 ==
LOC: ER 12:44 → MICUSO 23:31 → 7WST 12-05 01:27
PROVIDERS: ADMIT Internal Medicine; ATTEND Internal Medicine
PROC: 4A00X4Z Measurement of Central Nervous Electrical Activity, External Approach (ICD-10-PCS; 2022-12-06)
PROC: 0DH63UZ Insertion of Feeding Device into Stomach, Percutaneous Approach (ICD-10-PCS; principal; 2022-12-09)
DX: A41.9 Sepsis, unspecified organism (principal); G92.8 Other toxic encephalopathy; I21.A1 Myocardial infarction type 2; I63.9 Cerebral infarction, unspecified; E44.1 Mild protein-calorie malnutrition; N39.0 Urinary tract infection, site not specified; G81.94 Hemiplegia, unspecified affecting left nondominant side; I10 Essential (primary) hypertension; Z20.822 Contact with and (suspected) exposure to COVID-19; I72.5 Aneurysm of other precerebral arteries; D64.9 Anemia, unspecified; E11.9 Type 2 diabetes mellitus without complications; E83.42 Hypomagnesemia; F03.90 Unspecified dementia, unspecified severity, without behavioral disturbance, psychotic disturbance, mood disturbance, and anxiety; H53.461 Homonymous bilateral field defects, right side; K31.7 Polyp of stomach and duodenum; R13.12 Dysphagia, oropharyngeal phase; Z87.440 Personal history of urinary (tract) infections; Z79.02 Long term (current) use of antithrombotics/antiplatelets; Z79.84 Long term (current) use of oral hypoglycemic drugs; Z79.899 Other long term (current) drug therapy; Z68.24 Body mass index [BMI] 24.0-24.9, adult; Z82.49 Family history of ischemic heart disease and other diseases of the circulatory system; Z83.3 Family history of diabetes mellitus
CPT/HCPCS: 36415; 70551; 71045; 74018; 80048; 80053; 80061; 80202; 81003; 82550; 82553; 82962; 83605; 83735; 84100; 84145; 84484; 85025; 85027; 87426; 92610; 93005; 93970; 97110; 97162; 97166; 97530; 97535; 99291; J0690; J1100; J1630; J1650; J1815; J2060; J2405; J2543; J2704; J3370; J3475; J3480; J7030; J7060

== ENCOUNTER 2023-02-03 11:54 | Inpatient (IN) | payer MEDICARE, MEDICAID ==
[~2023-02-03] VITALS: Ht 157.5 cm; Wt 54.0 kg
[2023-02-03] MEDS ORDERED: PANT40SU PO (12:11)
[2023-02-03] MEDS ORDERED: KETOROLAC 60MG/2ML VIAL IM STA (12:44)
[2023-02-03 13:31] LABS: BASOPHILS % 0.3 % (0.0-2.0); EOSINOPHILS % 0.5 % (0.0-5.0); HEMOGLOBIN. 12.1 g/dL (12.0-16.0); LYMPHOCYTES % 7.6 % (20.0-50.0); MEAN CORPUSCULAR HEMOGLOBIN 28.6 pg (28.0-32.0); MEAN CORPUSCULAR HGB CONC 34.5 g/dL (31.0-37.0); MEAN PLATELET VOLUME 8.2 fl (7.4-10.4); NEUTROPHILS % 85.6 % (40.0-76.0); PLATELET 406 x1000/uL (130-400); RED BLOOD CELL COUNT 4.22 mill/uL (4.2-5.4); RED CELL DISTRIBUTION WIDTH 13.5 % (11.6-14.6); WHITE BLOOD COUNT 14.7 x1000/uL (4.5-11.0)
[2023-02-03 13:43] LABS: ALANINE AMINOTRANSFERASE 8 IU/L (10-49); ALBUMIN 4.2 g/dL (3.2-4.8); ASPARTATE AMINOTRANSFERASE 12 IU/L (<34); BILIRUBIN TOTAL 0.8 mg/dL (0.1-1.0); CALCIUM 9.9 mg/dL (8.7-10.4); CARBON DIOXIDE 31 mEq/L (21-32); CHLORIDE 98 mEq/L (98-107); CREATININE 0.6 mg/dL (0.6-1.0); GLUCOSE 160 mg/dL (70-105); POTASSIUM 4.3 mEq/L (3.5-5.1); PROTEIN TOTAL 7.6 g/dL (6.0-8.3); SODIUM 135 mEq/L (136-145); UREA NITROGEN BLOOD 14 mg/dL (9-23)
[2023-02-03] MEDS ORDERED: KETOROLAC 15MG/ML VIAL IV PRN (16:00)
[2023-02-03] MEDS ORDERED: GUAIFENESIN 200MG/10ML SUGAR FREE UDC PO PRN (16:00)
[2023-02-03] MEDS ORDERED: DOCUSATE SODIUM 100MG CAPSULE PO PRN (16:00)
[2023-02-03] MEDS ORDERED: IPRATROPIUM/ALBUTEROL 0.5-3(2.5)MG/3ML NEB HHN PRN (16:00)
[2023-02-03] MEDS ORDERED: MAGNESIUM/ALUMINUM HYDROXIDE/SIMETHICONE 30ML UDC PO PRN (16:00)
[2023-02-03] MEDS ORDERED: DEXTROSE 50% WATER 50ML SYRINGE IV PRN (16:00)
[2023-02-03] MEDS ORDERED: ONDANSETRON HCL 4MG/2ML INJ IV PRN (16:00)
[2023-02-03] MEDS ORDERED: HYDRALAZINE 20MG/ML VIAL IV PRN (16:15)
[2023-02-03] MEDS ORDERED: AMLODIPINE 5MG TABLET PO SCH (16:15)
[2023-02-03 16:27] LABS: PROTHROMBIN TIME 10.9 sec (9.6-11.0)
[2023-02-03 16:46] LABS: FOLIC ACID (FOLATE) SERUM > 20.00 ng/mL (>5.38); VITAMIN B12 SERUM 240 pg/mL (211-911)
[2023-02-03 23:15] VITALS: BP 133/68; PULSE 74; RESP 18; TEMP 98
[2023-02-04] VITALS: BP 132/83; PULSE 88; RESP 18; TEMP 96.3
[2023-02-04 04:00] VITALS: BP 154/92; PULSE 116; RESP 18; TEMP 96.6
[2023-02-04] MEDS: DEXT 5%/0.45% NACL 1000ML 1,000 ML IV SCH (05:20)
[2023-02-04] MEDS: BLOOD SUGAR DIAGNOSTIC STRIP TEST SCH ×4 (07:20→21:52)
[2023-02-04] MEDS: INSULIN LISPRO 100 UNITS/ML SUBCUT SCH ×4 (07:50→21:00)
[2023-02-04 08:00] VITALS: BP 133/83; PULSE 102; RESP 18; TEMP 96.9
[2023-02-04] MEDS: FAMOTIDINE 20MG/2ML VIAL IV SCH ×2 (08:19→21:51)
[2023-02-04 11:09] LABS: BASOPHILS % 0.4 % (0.0-2.0); EOSINOPHILS % 0.4 % (0.0-5.0); HEMATOCRIT. 39.1 % (36.0-48.0); HEMOGLOBIN. 12.9 g/dL (12.0-16.0); LYMPHOCYTES % 9.1 % (20.0-50.0); MEAN CORPUSCULAR HEMOGLOBIN 27.9 pg (28.0-32.0); MEAN CORPUSCULAR HGB CONC 32.9 g/dL (31.0-37.0); MEAN CORPUSCULAR VOLUME 84.9 fL (81.0-99.0); NEUTROPHILS % 82.1 % (40.0-76.0); RED BLOOD CELL COUNT 4.61 mill/uL (4.2-5.4); RED CELL DISTRIBUTION WIDTH 13.2 % (11.6-14.6); WHITE BLOOD COUNT 17.1 x1000/uL (4.5-11.0)
[2023-02-04 11:20] LABS: DIFFERENTIAL COMMENT 1
[2023-02-04 12:00] VITALS: BP 135/88; PULSE 97; RESP 19; TEMP 97.5
[2023-02-04] MEDS: ENOXAPARIN 40MG/0.4ML SYR SUBCUT SCH (12:17)
[2023-02-04 13:10] LABS: PLATELET 337 x1000/uL (130-400)
[2023-02-04 16:00] VITALS: BP 137/85; PULSE 116; RESP 18; TEMP 97.7
[2023-02-04] MEDS: CLOPIDOGREL 75MG TABLET PO SCH (16:39)
[2023-02-04 20:00] VITALS: BP 133/81; PULSE 110; RESP 18; TEMP 98.3
[2023-02-04] MEDS ORDERED: ATORVASTATIN CALCIUM 40MG TABLET PO SCH (21:00)
[2023-02-05] VITALS: BP 129/81; PULSE 104; RESP 18; TEMP 98.1
[2023-02-05 00:49] LABS: CALCIUM 9.9 mg/dL (8.7-10.4); CARBON DIOXIDE 29 mEq/L (21-32); CHLORIDE 98 mEq/L (98-107); CREATINE KINASE 154 IU/L (34-145); CREATININE 0.5 mg/dL (0.6-1.0); GLUCOSE 120 mg/dL (70-105); POTASSIUM 3.6 mEq/L (3.5-5.1); SODIUM 134 mEq/L (136-145); TROPONIN I HIGH SENSITIVITY 13 ng/L (3.0-34); UREA NITROGEN BLOOD 11 mg/dL (9-23)
[2023-02-05 04:00] VITALS: BP 162/84; PULSE 115; RESP 18; TEMP 98
[2023-02-05] MEDS: BLOOD SUGAR DIAGNOSTIC STRIP TEST SCH ×4 (07:02→21:00)
[2023-02-05 07:31] LABS: BASOPHILS % 0.3 % (0.0-2.0); HEMATOCRIT. 32.2 % (36.0-48.0); HEMOGLOBIN. 10.7 g/dL (12.0-16.0); LYMPHOCYTES % 12.7 % (20.0-50.0); MEAN CORPUSCULAR HGB CONC 33.3 g/dL (31.0-37.0); MEAN CORPUSCULAR VOLUME 83.9 fL (81.0-99.0); MEAN PLATELET VOLUME 8.4 fl (7.4-10.4); MONOCYTES % 8.8 % (2.0-8.0); NEUTROPHILS % 77.2 % (40.0-76.0); PLATELET 404 x1000/uL (130-400); RED BLOOD CELL COUNT 3.83 mill/uL (4.2-5.4); RED CELL DISTRIBUTION WIDTH 13.5 % (11.6-14.6); WHITE BLOOD COUNT 12.2 x1000/uL (4.5-11.0)
[2023-02-05] MEDS: INSULIN LISPRO 100 UNITS/ML SUBCUT SCH ×4 (07:50→21:00)
[2023-02-05 08:00] VITALS: BP 148/83; PULSE 102; RESP 18; TEMP 97.7
[2023-02-05] MEDS: DEXT 5%/0.45% NACL 1000ML 1,000 ML IV SCH ×2 (08:00→20:37)
[2023-02-05] MEDS: FAMOTIDINE 20MG/2ML VIAL IV SCH ×2 (08:15→20:34)
[2023-02-05] MEDS: AMLODIPINE 10MG TABLET PO SCH (08:15)
[2023-02-05] MEDS: CLOPIDOGREL 75MG TABLET PO SCH (08:15)
[2023-02-05 08:23] LABS: ALANINE AMINOTRANSFERASE 8 IU/L (10-49); ALBUMIN 3.9 g/dL (3.2-4.8); ASPARTATE AMINOTRANSFERASE 16 IU/L (<34); BILIRUBIN TOTAL 1.3 mg/dL (0.1-1.0); CALCIUM 9.7 mg/dL (8.7-10.4); CARBON DIOXIDE 29 mEq/L (21-32); CHLORIDE 100 mEq/L (98-107); CREATININE 0.5 mg/dL (0.6-1.0); GLUCOSE 142 mg/dL (70-105); SODIUM 135 mEq/L (136-145); UREA NITROGEN BLOOD 12 mg/dL (9-23)
[2023-02-05] MEDS: ENOXAPARIN 40MG/0.4ML SYR SUBCUT SCH (10:29)
[2023-02-05] MEDS ORDERED: MAGNESIUM 1 G PREMIX 100 ML IV NR (10:30)
[2023-02-05 12:00] VITALS: BP 136/79; PULSE 97; RESP 18; TEMP 97.7
[2023-02-05 15:51] LABS: CLARITY URINE SL HAZY (CLEAR); COLOR URINE YELLOW (YELLOW); PH URINE 5.5 (4.5-8.0); PROTEIN URINE NEGATIVE (NEGATIVE)
[2023-02-05 15:52] LABS: GLUCOSE URINE NEGATIVE (NEGATIVE); KETONES URINE NEGATIVE (NEGATIVE); LEUKOCYTE ESTERASE URINE 1+ (NEGATIVE); NITRITE URINE NEGATIVE (NEGATIVE); OCCULT BLOOD URINE NEGATIVE (NEGATIVE)
[2023-02-05 16:00] VITALS: BP 143/67; PULSE 97; RESP 17; TEMP 97.4
[2023-02-05 16:14] LABS: SQUAMOUS EPITHELIAL CELL URINE 1+ /lpf (RARE/1+)
[2023-02-05 16:15] LABS: BACTERIA URINE 1+; RBC URINE 0-2 /hpf (0-2); YEAST URINE 2+
[2023-02-05 20:00] VITALS: BP 142/74; PULSE 80; RESP 18; TEMP 98.6
[2023-02-06] VITALS: BP 95/67; PULSE 119; RESP 18; TEMP 97.9
[2023-02-06 04:00] VITALS: BP 134/85; PULSE 60; RESP 18; TEMP 97.5
[2023-02-06 06:07] LABS: BASOPHILS % 0.4 % (0.0-2.0); EOSINOPHILS % 1.4 % (0.0-5.0); HEMATOCRIT. 32.7 % (36.0-48.0); HEMOGLOBIN. 11.2 g/dL (12.0-16.0); LYMPHOCYTES % 12.8 % (20.0-50.0); MEAN CORPUSCULAR HEMOGLOBIN 28.7 pg (28.0-32.0); MEAN CORPUSCULAR HGB CONC 34.5 g/dL (31.0-37.0); MEAN CORPUSCULAR VOLUME 83.4 fL (81.0-99.0); MEAN PLATELET VOLUME 8.2 fl (7.4-10.4); MONOCYTES % 10.2 % (2.0-8.0); NEUTROPHILS % 75.2 % (40.0-76.0); PLATELET 369 x1000/uL (130-400); RED BLOOD CELL COUNT 3.91 mill/uL (4.2-5.4); RED CELL DISTRIBUTION WIDTH 13.1 % (11.6-14.6); WHITE BLOOD COUNT 10.9 x1000/uL (4.5-11.0)
[2023-02-06] MEDS ORDERED: CEFTRIAXONE 1GM PREMIX 50 ML IV SCH (07:00)
[2023-02-06] MEDS: BLOOD SUGAR DIAGNOSTIC STRIP TEST SCH ×3 (07:00→21:00)
[2023-02-06] MEDS: INSULIN LISPRO 100 UNITS/ML SUBCUT SCH ×2 (07:50→13:11)
[2023-02-06 08:00] VITALS: BP 126/99; PULSE 104; RESP 18; TEMP 97.5
[2023-02-06] MEDS: AMLODIPINE 10MG TABLET PO SCH (09:00)
[2023-02-06] MEDS: FAMOTIDINE 20MG/2ML VIAL IV SCH ×2 (09:00→21:22)
[2023-02-06 09:39] LABS: CALCIUM 9.3 mg/dL (8.7-10.4); CARBON DIOXIDE 26 mEq/L (21-32); CHLORIDE 99 mEq/L (98-107); CREATININE 0.5 mg/dL (0.6-1.0); GLUCOSE 98 mg/dL (70-105); POTASSIUM 3.4 mEq/L (3.5-5.1); SODIUM 133 mEq/L (136-145); UREA NITROGEN BLOOD 7 mg/dL (9-23)
[2023-02-06] MEDS: CEFTRIAXONE 1,000 MG in DEXTROSE 5% WATER 50 ML IV SCH (09:55)
[2023-02-06] MEDS: DEXT 5%/0.45% NACL 1000ML 1,000 ML IV SCH (11:01)
[2023-02-06] MEDS ORDERED: POTASSIUM CHLORIDE 20MEQ TABLET SR PO NR (11:15)
[2023-02-06 12:00] VITALS: BP 120/87; PULSE 101; RESP 17; TEMP 97.2
[2023-02-06 16:00] VITALS: BP 122/90; PULSE 138; RESP 19; TEMP 96.9
[2023-02-06] MEDS ORDERED: HYDRALAZINE 20 MG in SODIUM CHLORIDE 0.9% 49 ML IV PRN (18:30)
[2023-02-06 20:00] VITALS: BP 108/79; PULSE 109; RESP 18; TEMP 98.1
[2023-02-07] VITALS: BP 105/72; PULSE 100; RESP 18; TEMP 97.7
[2023-02-07 04:00] VITALS: BP 146/82; PULSE 104; RESP 18; TEMP 97.5
[2023-02-07 07:14] LABS: BASOPHILS % 0.2 % (0.0-2.0); CALCIUM 9.4 mg/dL (8.7-10.4); CARBON DIOXIDE 26 mEq/L (21-32); CHLORIDE 99 mEq/L (98-107); CREATINE KINASE 135 IU/L (34-145); CREATININE 0.5 mg/dL (0.6-1.0); EOSINOPHILS % 0.8 % (0.0-5.0); GLUCOSE 159 mg/dL (70-105); HEMATOCRIT. 32.3 % (36.0-48.0); LYMPHOCYTES % 10.9 % (20.0-50.0); MEAN CORPUSCULAR HGB CONC 34.2 g/dL (31.0-37.0); MEAN PLATELET VOLUME 8.1 fl (7.4-10.4); MONOCYTES % 9.8 % (2.0-8.0); NEUTROPHILS % 78.3 % (40.0-76.0); PLATELET 369 x1000/uL (130-400); POTASSIUM 3.6 mEq/L (3.5-5.1); RED BLOOD CELL COUNT 3.94 mill/uL (4.2-5.4); RED CELL DISTRIBUTION WIDTH 13.3 % (11.6-14.6); SODIUM 133 mEq/L (136-145); UREA NITROGEN BLOOD 5 mg/dL (9-23); WHITE BLOOD COUNT 13.4 x1000/uL (4.5-11.0)
[2023-02-07] MEDS: BLOOD SUGAR DIAGNOSTIC STRIP TEST SCH ×3 (07:20→21:48)
[2023-02-07 08:00] VITALS: BP 138/82; PULSE 103; RESP 20; TEMP 97.5
[2023-02-07] MEDS: CEFTRIAXONE 1,000 MG in DEXTROSE 5% WATER 50 ML IV SCH (08:51)
[2023-02-07] MEDS: AMLODIPINE 10MG TABLET PO SCH (08:52)
[2023-02-07] MEDS: FAMOTIDINE 20MG/2ML VIAL IV SCH ×2 (08:59→21:34)
[2023-02-07 12:00] VITALS: BP 125/74; PULSE 106; RESP 19; TEMP 97.9
[2023-02-07] MEDS: INSULIN LISPRO 100 UNITS/ML SUBCUT SCH ×2 (12:50→21:52)
[2023-02-07] MEDS: DEXT 5%/0.45% NACL 1000ML 1,000 ML IV SCH ×2 (14:04)
[2023-02-07] MEDS ORDERED: MAGNESIUM 1 G PREMIX 100 ML IV NR (15:00)
[2023-02-07 16:00] VITALS: BP 129/80; PULSE 112; RESP 19; TEMP 98.6
[2023-02-07] MEDS ORDERED: VANCOMYCIN HCL 1 GM/VIAL ONE (17:05)
[2023-02-07] MEDS ORDERED: BUPIVACAINE HCL/PF 0.5% (5MG/ML) 10ML ONE (17:06)
[2023-02-07] MEDS ORDERED: SUCCINYLCHOLINE CHLORIDE 200MG/10ML IV ONE (18:13)
[2023-02-07] MEDS ORDERED: ONDANSETRON HCL 4MG/2ML INJ IV PRN (18:15)
[2023-02-07] MEDS ORDERED: HYDROMORPHONE HCL/PF 2MG/ML CPJ IV PRN (18:15)
[2023-02-07] MEDS ORDERED: ATROPINE SULFATE 0.4MG/ML VIAL IV PRN (18:15)
[2023-02-07] MEDS ORDERED: MEPERIDINE HCL/PF 25MG/ML CPJ IV PRN (18:15)
[2023-02-07] MEDS ORDERED: FENTANYL CITRATE/PF 50MCG/ML 2ML VIAL IV PRN (18:15)
[2023-02-07] MEDS ORDERED: PHENYLEPHRINE HCL 10 MG/ML 1ML (IV VIAL) IV ONE (18:22)
[2023-02-07] MEDS ORDERED: ONDANSETRON HCL 4MG/2ML INJ ONE (18:36)
[2023-02-07] MEDS ORDERED: ETOMIDATE 2MG/ML 10ML VIAL IV ONE (18:36)
[2023-02-07] MEDS ORDERED: NEOSTIGMINE METHYLSULFATE 1MG/ML 10 ML VIAL ONE (18:47)
[2023-02-07] MEDS ORDERED: CEFAZOLIN 2,000 MG in DEXT 5% WATER 100 ML IV SCH (20:00)
[2023-02-07 20:30] VITALS: BP 139/82; PULSE 101; RESP 17; TEMP 96.8
[2023-02-07] MEDS ORDERED: ATROPINE SULFATE 1MG/10ML SYR IV PRN (20:33)
[2023-02-07] MEDS: CEFAZOLIN 2,000 MG in DEXT 5% WATER 100 ML IV SCH (21:34)
[2023-02-08] VITALS: BP 110/79; PULSE 113; RESP 18; TEMP 96.4
[2023-02-08] MEDS: DEXT 5%/0.45% NACL 1000ML 1,000 ML IV SCH (03:28)
[2023-02-08 04:00] VITALS: BP 144/72; PULSE 118; RESP 18; TEMP 98.8
[2023-02-08] MEDS: CEFAZOLIN 2,000 MG in DEXT 5% WATER 100 ML IV SCH ×3 (04:30→20:51)
[2023-02-08] MEDS: BLOOD SUGAR DIAGNOSTIC STRIP TEST SCH ×4 (06:41→20:50)
[2023-02-08] MEDS: INSULIN LISPRO 100 UNITS/ML SUBCUT SCH ×3 (06:49→20:50)
[2023-02-08 08:00] VITALS: BP 128/83; PULSE 107; RESP 17; TEMP 96.3
[2023-02-08] MEDS: CEFTRIAXONE 1,000 MG in DEXTROSE 5% WATER 50 ML IV SCH (08:32)
[2023-02-08] MEDS: FAMOTIDINE 20MG/2ML VIAL IV SCH ×2 (09:02→20:50)
[2023-02-08 09:05] LABS: HEMATOCRIT. 30.8 % (36.0-48.0); HEMOGLOBIN. 10.4 g/dL (12.0-16.0); MEAN CORPUSCULAR HEMOGLOBIN 27.9 pg (28.0-32.0); MEAN CORPUSCULAR HGB CONC 33.9 g/dL (31.0-37.0); MEAN CORPUSCULAR VOLUME 82.3 fL (81.0-99.0); MEAN PLATELET VOLUME 8.6 fl (7.4-10.4); PLATELET 385 x1000/uL (130-400); RED BLOOD CELL COUNT 3.75 mill/uL (4.2-5.4); WHITE BLOOD COUNT 15.4 x1000/uL (4.5-11.0)
[2023-02-08] MEDS: AMLODIPINE 10MG TABLET PO SCH (09:05)
[2023-02-08 09:07] LABS: DIFFERENTIAL COMMENT 1
[2023-02-08 09:23] LABS: CALCIUM 9.5 mg/dL (8.7-10.4); CARBON DIOXIDE 26 mEq/L (21-32); CHLORIDE 97 mEq/L (98-107); CREATININE 0.6 mg/dL (0.6-1.0); GLUCOSE 161 mg/dL (70-105); POTASSIUM 4.1 mEq/L (3.5-5.1); SODIUM 133 mEq/L (136-145); UREA NITROGEN BLOOD 6 mg/dL (9-23)
[2023-02-08 12:00] VITALS: BP 130/78; PULSE 110; RESP 18; TEMP 98.1
[2023-02-08 16:00] VITALS: BP 155/77; PULSE 128; RESP 19; TEMP 97.7
[2023-02-08 16:28] LABS: PLATELET ESTIMATE NORMAL
[2023-02-08] MEDS: ACETAMINOPHEN 325MG TABLET PO PRN (18:12)
[2023-02-08 20:00] VITALS: BP 126/72; PULSE 123; RESP 18; TEMP 98.1
[2023-02-09] VITALS: BP 131/77; PULSE 119; RESP 18; TEMP 97.7
[2023-02-09 04:00] VITALS: BP 119/83; PULSE 114; RESP 18; TEMP 97.9
[2023-02-09] MEDS: CEFAZOLIN 2,000 MG in DEXT 5% WATER 100 ML IV SCH ×2 (05:45→12:00)
[2023-02-09] MEDS: ACETAMINOPHEN 325MG TABLET PO PRN (05:48)
[2023-02-09] MEDS: BLOOD SUGAR DIAGNOSTIC STRIP TEST SCH (07:20)
[2023-02-09] MEDS: INSULIN LISPRO 100 UNITS/ML SUBCUT SCH (07:50)
[2023-02-09 07:51] LABS: BASOPHILS % 0.3 % (0.0-2.0); EOSINOPHILS % 0.7 % (0.0-5.0); HEMATOCRIT. 28.3 % (36.0-48.0); HEMOGLOBIN. 9.8 g/dL (12.0-16.0); LYMPHOCYTES % 11.9 % (20.0-50.0); MEAN CORPUSCULAR HEMOGLOBIN 28.4 pg (28.0-32.0); MEAN CORPUSCULAR HGB CONC 34.7 g/dL (31.0-37.0); MEAN CORPUSCULAR VOLUME 81.9 fL (81.0-99.0); MEAN PLATELET VOLUME 8.1 fl (7.4-10.4); NEUTROPHILS % 78.1 % (40.0-76.0); PLATELET 373 x1000/uL (130-400); RED BLOOD CELL COUNT 3.46 mill/uL (4.2-5.4); RED CELL DISTRIBUTION WIDTH 13.2 % (11.6-14.6); WHITE BLOOD COUNT 13.3 x1000/uL (4.5-11.0)
[2023-02-09 08:00] VITALS: BP 140/71; PULSE 106; RESP 19; TEMP 97
[2023-02-09 08:31] LABS: CALCIUM 8.9 mg/dL (8.7-10.4); CARBON DIOXIDE 27 mEq/L (21-32); CHLORIDE 99 mEq/L (98-107); CREATININE 0.5 mg/dL (0.6-1.0); GLUCOSE 131 mg/dL (70-105); POTASSIUM 3.6 mEq/L (3.5-5.1); SODIUM 134 mEq/L (136-145); UREA NITROGEN BLOOD 10 mg/dL (9-23)
[2023-02-09] MEDS: CLOPIDOGREL 75MG TABLET PO SCH (08:43)
[2023-02-09] MEDS: CEFTRIAXONE 1,000 MG in DEXTROSE 5% WATER 50 ML IV SCH (08:43)
[2023-02-09] MEDS: AMLODIPINE 10MG TABLET PO SCH (08:43)
[2023-02-09] MEDS: FAMOTIDINE 20MG/2ML VIAL IV SCH (08:43)
[2023-02-09] MEDS ORDERED: HYDROCODONE/ACETAMINOPHEN 10/325MG TABLET PO PRN (09:30)
[2023-02-09] MEDS ORDERED: HYDROCODONE/ACETAMINOPHEN 5/325MG TABLET PO PRN (09:30)
[2023-02-09] MEDS ORDERED: NALOXONE HCL 0.4MG/ML VIAL IV PRN (09:45)
[2023-02-09] MEDS ORDERED: ACETAMINOPHEN 325MG TABLET PO PRN (09:45)
[2023-02-09 12:00] VITALS: BP 137/64; PULSE 108; RESP 19; TEMP 98.1
[2023-02-09 14:52] VITALS: BP 137/64; PULSE 108; TEMP 98.1; O2SAT 100
== END 2023-02-09 16:54 | DRG 492 ==
LOC: ER 12:08 → MICUSO 18:23 → EDBEDREQTM 18:37 → EDBEDREQ 18:37 → ENRESERV 20:20 → 6EST 02-04 00:21
PROVIDERS: ADMIT Internal Medicine; ATTEND Internal Medicine
PROC: 0PSD04Z Reposition Left Humeral Head with Internal Fixation Device, Open Approach (ICD-10-PCS; principal; 2023-02-03)
DX: S42.202A Unspecified fracture of upper end of left humerus, initial encounter for closed fracture (principal); A41.9 Sepsis, unspecified organism; I69.354 Hemiplegia and hemiparesis following cerebral infarction affecting left non-dominant side; N39.0 Urinary tract infection, site not specified; M85.80 Other specified disorders of bone density and structure, unspecified site; Z20.822 Contact with and (suspected) exposure to COVID-19; I10 Essential (primary) hypertension; E87.6 Hypokalemia; E83.42 Hypomagnesemia; E11.9 Type 2 diabetes mellitus without complications; R13.10 Dysphagia, unspecified; M19.012 Primary osteoarthritis, left shoulder; Z79.02 Long term (current) use of antithrombotics/antiplatelets; Z79.4 Long term (current) use of insulin; Z79.84 Long term (current) use of oral hypoglycemic drugs; Z79.899 Other long term (current) drug therapy; Z93.1 Gastrostomy status; W18.39XA Other fall on same level, initial encounter; Y93.89 Activity, other specified; Y92.89 Other specified places as the place of occurrence of the external cause; Y99.8 Other external cause status
CPT/HCPCS: 36415; 71045; 73030; 73060; 73080; 76000; 80048; 80053; 80061; 81003; 82306; 82550; 82607; 82746; 82962; 83036; 83735; 84145; 84484; 85025; 87426; 87804; 93005; 93970; 97162; 97164; 97167; 99285; A4565; C1893; C9803; J0330; J0690; J0696; J1650; J1815; J1885; J2370; J2405; J2710; J3370; J3475; J3490; J7060; C1713; C1769